=== PATIENT | female | born 1990 | race Caucasian/White ===

== ENCOUNTER 2020-10-19 11:17 | Emergency (ER) | payer OTHER, SELFPAY ==
--- NOTE | ~2020-10-19 | CT_ITS ---
EXAMINATION: CT SOFT TISSUE NECK WITH CONTRAST CLINICAL INFORMATION: Sore throat and displacing the uvula. Question left peritonsillar abscess. COMPARISON: None TECHNIQUE: Following the intravenous administration of 60 mL of Omnipaque 350 intravenous contrast, helical imaging was performed in the axial plane with generation of coronal and sagittal reformatted images. This CT examination was performed using dose optimization techniques as appropriate, variously including the following: *Automated exposure control *Adjustment of mA and/or kV according to patient size (this includes techniques or standardized protocols for targeted exams where dose is matched to indication/reason for exam; i.e. extremities or head) *Use of iterative reconstruction technique DLP: 592 mGy-cm FINDINGS: There is heterogeneous low-attenuation seen in the left side of the pharyngo mucosal space of the oropharynx suggestive of a peritonsillar abscess. This measures approximately 3 cm. The epiglottis is normal appearing. Prevertebral soft tissues are normal. There is diffuse cervical lymphadenopathy. Largest lymph nodes are bilateral 1.3 cm submandibular or anterior jugulodigastric level 2 lymph nodes. Visualized paranasal sinuses, mastoid air cells and middle ears are clear. There is poor dentition with multiple dental caries. The salivary glands and thyroid gland are normal. The superior mediastinum is normal. Visualized lung apices are clear. Visualized intracranial structures are normal. There is mild degenerative spondylosis at C5-C6 and C6-C7. CT/CT soft tissue neck w con IMPRESSION: Large left peritonsillar abscess measuring approximately 3 cm. Diffuse cervical lymphadenopathy. Poor dentition with multiple dental caries.
[2020-10-19 11:20] VITALS: BP 131/69; PULSE 93; RESP 16; TEMP 37.2; O2SAT 96; BMI 24.5
--- NOTE | 2020-10-19 11:43 | ED_ITS ---
HPI - URI/Sore Throat General Chief Complaint: General Medical Stated Complaint: sore throat Time Seen by Provider: 10/19/20 11:23 Source: patient Mode of arrival: ambulatory Limitations: no limitations History of Present Illness HPI Narrative: 30-year-old female with a past medical history of asthma, anxiety and depression presenting to the ED with complaints of sore throat for 10 days and within the past week the sore throat has now localized only to the left side and today is radiating to her left ear. Reports she is having trouble opening her mouth. Patient reports on September 23 she was seen by her dentist for dental infection and was placed on amoxicillin until October 08 she completed the entire course, she was scheduled to follow up tomorrow for actual dental extraction. Has not had any dental work done was only seen by the dentist and paste on antibiotics. MD elicited complaint: sore throat Onset (ago): day(s) (Ten days worse today) Consistency: constant Severity: severe Pain scale (0-10): 10 Description of mucous: clear, watery and yellow Able to tolerate fluids by mouth: Yes Exacerbating factors: swallowing and speaking Relieving factors: nothing Associated symptoms: rhinorrhea, nasal congestion and ear pain Treatments prior to arrival: other (Cepacol spray ) Related Data Home Medications Medication Instructions Recorded Confirmed methadone 40 mg soluble tablet 50 mg PO DAILY tab 07/09/20 Previous Rx's Medication Instructions Recorded albuterol sulfate 90 mcg/actuation 2 puff INHALATION Q6H PRN #6.7 g 07/09/20 aerosol inhaler acetaminophen [Tylenol Extra 1,000 mg PO QID PRN #14 tab 10/19/20 Strength] amoxicillin-pot clavulanate 1 tab PO BID 10 Days #20 tab 10/19/20 [Augmentin] ibuprofen 800 mg PO Q8H PRN #14 tab 10/19/20 oxycodone 5 mg PO BID PRN #10 tab 10/19/20 prednisone 40 mg PO DAILY 5 Days #10 tab 10/19/20 Allergies Allergy/AdvReac Type Severity Reaction Status Date / Time No Known Allergies Allergy Verified 07/08/20 07:07 Review of Systems Review of Systems: Constitutional : No Fever, No Chills, No changes in PO intake, No difficulty speaking, no recent dental procedure, no heat or cold intolerance while eating, no recent face trauma, ENT/Mouth : + swallowing difficulty, + change in voice, + jaw pain, + trismus, + Throat swelling, No facial swelling, no drooling, no bleeding, no lacerations, no tongue swelling, gum swelling, Eyes: No Eye Pain, No periorbital Swelling Cardiovascular : No Chest Pain, No SOB Respiratory : No Cough, No Sputum, No Wheezing, No Smoke Exposure, No Dyspnea Gastrointestinal : No Nausea, No Vomiting, No Diarrhea Genitourinary : No Dysuria Musculoskeletal : No Myalgias Skin : No rash, no facial swelling or redness, Neuro : No Weakness, No Numbness, No Headache Yes all other systems are reviewed and are negative [facility] Past Medical History Attestation statement: The following information was validated with the patient. Medical History Anxiety and depression Surgical History No pertinent past surgical history Family History Family History Father No problems noted. Mother Scoliosis Maternal Grandmother Breast cancer Social History Social History Advance Directives: No Advance Directives Information Provided: No Physical Exam Vital Signs: Vital Signs: Last Vital Signs Temp 99 F 10/19/20 11:20 Pulse 74 10/19/20 14:50 Resp 16 10/19/20 11:20 BP 139/85 10/19/20 14:50 Pulse Ox 96 10/19/20 11:20 Body Mass Index 24.5 vital signs have been reviewed as normal and appeared to be correct. Blood p ressure normal. Heart rate normal. Respiration rate normal. Temperature normal. Oxygen saturation normal. Appearance: Alert. Oriented X3. No acute distress. Head: Normal external exam. Normocephalic. Atraumatic. Eyes: PERRLA. EOMI. Conjunctiva and sclera normal. Eyelids normal. ENT: EAC normal. Fluid behind the b/l tympanic membranes otherwise no signs of infection. To left posterior pharynx at the soft palate patient has moderate soft tissue swelling and erythema to the uvula is displaced to the right questioning peritonsillar abscess. Patient's voice sounds muffled and she does have trismus. Moist mucous membranes. Patient able to swallow without any difficulty. Tolerating her secretions well. No drooling noted. Neck: Normal inspection. Neck supple. FROM. Thyroid Normal. Trachea midline. No meningeal signs. No neck mass noted. Patient with bilateral cervical lymphadenopathy noted. CVS: Normal heart rate and rhythm. Heart sound normal. No murmurs noted. Pulses normal throughout. Respiratory: No respiratory distress. Painless inspiration. Breath sounds normal. No wheezes/rales/rhonchi noted. Chest nontender. No accessory muscle usage noted or decreased air movement noted. Back: No CVA tenderness. Full range of motion noted. Skin: Skin warm and dry. Normal skin color. Normal skin turgor. No rashes/lesions/lacerations noted. Extremities: No lower extremity edema. Extremities exhibit normal range of motion. Extremities nontender. Neuro: Oriented X 3. No motor deficit. No sensory deficit. Reflexes normal. Course Course Course Narrative: 11:30am - 30-year-old female with a past medical history of asthma, anxiety and d epression presenting to the ED with complaints of sore throat for 10 days worse today localized to the left side with inability to fully open her mouth, change in her voice and radiating to her left ear. - On exam patient is alert and oriented x3. Not in any acute distress. Nontoxic appearing. Patient's oxygen saturation at 96% on room air all other vitals are within normal limits. Patient is noted to have trismus and muffled voice. Although patient is able to tolerate her secretions well. - Concern for peritonsillar abscess vs bacterial pharyngitis - Plan: Labs, blood cultures, lactic acid, rapid strep, SARs/RSV/flu swab. Provide a L of IV fluids, 10 mg of IV dexamethasone, 30 mg of IV Toradol and give the patient Zosyn IV along with a CT soft tissue neck with contrast to evaluate for possible peritonsillar abscess then re-evaluate. Reevaluation(s) Reevaluation #1: - [place] [id number]. All other labs are within normal limits. Serum quant negative. Rapid strep negative. COVID/RSV/flu negative. - soft tissue neck CT with IV contrast revealed large left peritonsillar abscess measuring approximately 3 cm with diffuse cervical lymphadenopathy along with poor dentition with multiple dental caries. - therefore at this time will give the patient 4 mg of IV morphine and 4 mg of Zofran IV and attempt to I&D the peritonsillar abscess and re-evaluate as patient is requesting to leave against medical advice if she is transferred to another hospital. Time: 15:30 Reevaluation #2: - patient now status post I and D of peritonsillar abscess. Patient tolerated procedure well. No complications. Will DC home with antibiotics and symptomatic treatment along with instructions return if any new or worsening symptoms to follow up with primary care provider. Patient understands agrees the plan. Time: 16:32 Procedures Abscess I/D Site: other (Left peritonsillar) Sedation/analgesia: other (4 mg of morphine) Local Anesthetic: other anesthetic (Lidocaine 4% spray with Magic) Amount of anesthesia used (mL): 5 Technique: needle aspiration Amount of fluid expressed (mL): 4 Sent for culture/gram staining?: No Irrigation: Yes Packing used?: none Complications: other (No complications) MDM - URI/Sore Throat Medical Records Attestation: I reviewed the patient's medical records. Lab Data Attestation: I reviewed the patient's lab results. Result diagrams: 10/19/20 13:41 10/19/20 13:41 Labs: Lab Results 10/19/20 10/19/20 10/19/20 Range/Units 12:22 13:41 13:41 WBC 16.6 H (4.8-10.8) X10*3/uL RBC 4.73 (4.20-5.50) X10*6/uL Hgb 15.5 (12.0-16.0) g/dl Hct 45.6 (37-47) % MCV 96.4 (80-98) fL MCH 32.8 (27.0-33.0) pg MCHC 34.0 (31.0-35.0) g/dl RDW 12.3 (11.0-16.0) % Plt Count 261 (160-400) X10*3/uL MPV 9.1 L (9.4-12.3) fL Immature Gran % (Auto) 0.5 H (0.0-0.4) % Neut % (Auto) 78.4 H (45-73) % Lymph % (Auto) 13.0 L (20-40) % [place] % (Auto) 6.4 (2-11) % Eos % (Auto) 1.3 (0-4) % Baso % (Auto) 0.4 (0-2) % Lymph # (Auto) 2.2 (1.2-4.9) X10*3/uL [place] # (Auto) 1.1 (0.1-1.2) X10*3/uL Eos # (Auto) 0.2 (0.0-0.4) X10*3/uL Baso # (Auto) 0.1 (0.0-0.2) X10*3/uL Abs Immat Gran (auto) 0.08 H (0.00-0.03) X10*3/uL Absolute Neuts (auto) 13.0 H (2.0-8.3) X10*3/uL Absolute Nucleated RBC 0.000 (0.0-0.012) X10*3/uL Nucleated RBC % (auto) 0.0 (0.0-0.2) /100WBC PT 12.2 (10.8-13.0) SEC INR 1.0 (0.9-1.1) Sodium (135-145) mmol/L Potassium (3.3-5.1) mmol/L Chloride (96-108) mmol/L Carbon Dioxide (22-29) mmol/L Anion Gap (12-20) BUN (9-16) mg/dL Creatinine (0.5-1.4) mg/dL Estim Creat Clear Calc Estimated GFR Random Glucose (60-115) mg/dL Lactic Acid (0.5-2.0) mmol/L Calcium (8.4-10.2) mg/dL Magnesium (1.6-2.6) mg/dL Beta HCG, Quant mIU/mL Coronavirus (PCR) NEGATIVE (Negative) Influenza Type A (PCR) NEGATIVE (Negative) Influenza Type B (PCR) NEGATIVE (Negative) RSV RNA Qual (PCR) NEGATIVE (Negative) 10/19/20 10/19/20 10/19/20 Range/Units 13:41 13:41 13:42 WBC (4.8-10.8) X10*3/uL RBC (4.20-5.50) X10*6/uL Hgb (12.0-16.0) g/dl Hct (37-47) % MCV (80-98) fL MCH (27.0-33.0) pg MCHC (31.0-35.0) g/dl RDW (11.0-16.0) % Plt Count (160-400) X10*3/uL MPV (9.4-12.3) fL Immature Gran % (Auto) (0.0-0.4) % Neut % (Auto) (45-73) % Lymph % (Auto) (20-40) % Trim[place] % (Auto) (2-11) % Eos % (Auto) (0-4) % Baso % (Auto) (0-2) % Lymph # (Auto) (1.2-4.9) X10*3/uL Trimble # (Auto) (0.1-1.2) X10*3/uL Eos # (Auto) (0.0-0.4) X10*3/uL Baso # (Auto) (0.0-0.2) X10*3/uL Abs Immat Gran (auto) (0.00-0.03) X10*3/uL Absolute Neuts (auto) (2.0-8.3) X10*3/uL Absolute Nucleated RBC (0.0-0.012) X10*3/uL Nucleated RBC % (auto) (0.0-0.2) /100WBC PT (10.8-13.0) SEC INR (0.9-1.1) Sodium 135 (135-145) mmol/L Potassium 4.6 (3.3-5.1) mmol/L Chloride 97 (96-108) mmol/L Carbon Dioxide 29 (22-29) mmol/L Anion Gap 14 (12-20) BUN 9 (9-16) mg/dL Creatinine 0.72 (0.5-1.4) mg/dL Estim Creat Clear Calc 95.1 Estimated GFR > 60 Random Glucose 80 (60-115) mg/dL Lactic Acid 0.6 (0.5-2.0) mmol/L Calcium 9.3 (8.4-10.2) mg/dL Magnesium 2.4 (1.6-2.6) mg/dL Beta HCG, Quant < 2 mIU/mL Coronavirus (PCR) (Negative) Influenza Type A (PCR) (Negative) Influenza Type B (PCR) (Negative) RSV RNA Qual (PCR) (Negative) Imaging Data Soft tissue neck CT with IV contrast: Attestation: I personally reviewed and interpreted this imaging study as follows: Radiologist's impression: FINDINGS: There is heterogeneous low-attenuation seen in the left side of the pharyngo mucosal space of the oropharynx suggestive of a peritonsillar abscess. This measures approximately 3 cm. The epiglottis is normal appearing. Prevertebral soft tissues are normal. There is diffuse cervical lymphadenopathy. Largest lymph nodes are bilateral 1.3 cm submandibular or anterior jugulodigastric level 2 lymph nodes. Visualized paranasal sinuses, mastoid air cells and middle ears are clear. There is poor dentition with multiple dental caries. The salivary glands and thyroid gland are normal. The superior mediastinum is normal. Visualized lung apices are clear. Visualized intracranial structures are normal. There is mild degenerative spondylosis at C5-C6 and C6-C7. CT/CT soft tissue neck w con IMPRESSION: Large left peritonsillar abscess measuring approximately 3 cm. Diffuse cervical lymphadenopathy. Poor dentition with multiple dental caries. Critical Care Time Critical Care Time Critical Care Time: Yes Total Critical Care Time: 60 Attestation: I personally attest to this time spent taking care of the patient Discharge Plan Discharge Clinical Impression: Abscess, peritonsillar Patient Disposition: Home, Self-Care Instructions: Peritonsillar Abscess (ED) Additional Instructions: You are given morphine while you were in the emergency department for pain due to a severe peritonsillar abscess/pain/swelling. I am giving you a prescription for oxycodone as well for symptomatic treatment. Return if any new or worsening symptoms. Prescriptions: New amoxicillin-pot clavulanate [Augmentin] 875-125 mg tablet 1 tab PO BID 10 Days Qty: 20 RF: 0 ibuprofen 800 mg tablet 800 mg PO Q8H PRN (Reason: pain) Qty: 14 RF: 0 acetaminophen [Tylenol Extra Strength] 500 mg tablet 1,000 mg PO QID PRN (Reason: fever or pain) Qty: 14 RF: 0 prednisone 20 mg tablet 40 mg PO DAILY 5 Days Qty: 10 RF: 0 oxycodone 5 mg tablet 5 mg PO BID PRN (Reason: pain) Qty: 10 RF: 0 No Action methadone 40 mg tablet,soluble 50 mg PO DAILY RF: 0 albuterol sulfate [ProAir HFA] 90 mcg/actuation HFA aerosol inhaler 2 puff inhalation Q6H PRN (Reason: shortness of breath or wheezing) Qty: 6.7 RF: 0 Referrals: Aminah Ham NP [Primary Care Provider] - 2 days
[2020-10-19 13:09] LABS: Influenza A PCR NEGATIVE (Negative); Influenza B PCR NEGATIVE (Negative); Resp Syncy Virus RNA Qual PCR NEGATIVE (Negative); SARS COV2 PCR INHOUSE NEGATIVE (Negative)
[2020-10-19 13:50] LABS: MANUAL DIFF FLAG NO
[2020-10-19 13:54] LABS: Basophils Absolute Auto 0.1 X10*3/uL (0.0-0.2); Basophils Percent Auto 0.4 % (0-2); Eosinophils Absolute Auto 0.2 X10*3/uL (0.0-0.4); Eosinophils Percent Auto 1.3 % (0-4); Hematocrit 45.6 % (37-47); Hemoglobin 15.5 g/dl (12.0-16.0); Imm Gran Abs Auto 0.08 X10*3/uL (0.00-0.03); Imm Gran Pct Auto 0.5 % (0.0-0.4); Lymphocytes Absolute Auto 2.2 X10*3/uL (1.2-4.9); Mean Corpuscular Hemoglobin 32.8 pg (27.0-33.0); Mean Corpuscular Volume 96.4 fL (80-98); Mean Platelet Volume 9.1 fL (9.4-12.3); Monocytes Absolute Auto 1.1 X10*3/uL (0.1-1.2); Monocytes Percent Auto 6.4 % (2-11); Neutrophils Percent Auto 78.4 % (45-73); Platelet Count 261 X10*3/uL (160-400); Red Blood Count 4.73 X10*6/uL (4.20-5.50); Red Cell Distribution Width 12.3 % (11.0-16.0); White Blood Count 16.6 X10*3/uL (4.8-10.8)
[2020-10-19] MEDS: Piperacillin Sodium/Tazobactam 2.25 GM in 0.9 % Sodium Chloride 50 ML IV (13:57)
[2020-10-19] MEDS: Ketorolac Tromethamine 15 MG/ML VIAL 30 MG IV (13:59)
[2020-10-19] MEDS: 0.9 % Sodium Chloride 1,000 ML 999 ML IVCONT (14:01)
[2020-10-19 14:04] LABS: Prothrombin Time 12.2 SEC (10.8-13.0)
[2020-10-19 14:07] LABS: Lactic Acid 0.6 mmol/L (0.5-2.0)
[2020-10-19 14:13] LABS: Anion Gap 14 (12-20); Blood Urea Nitrogen 9 mg/dL (9-16); Calcium 9.3 mg/dL (8.4-10.2); Carbon Dioxide 29 mmol/L (22-29); Chloride 97 mmol/L (96-108); Creatinine Clr Calc Pharmacy 95.1; Estimated Glomerular Filt Rate > 60; Glucose Random 80 mg/dL (60-115); Magnesium 2.4 mg/dL (1.6-2.6); Potassium 4.6 mmol/L (3.3-5.1); Sodium 135 mmol/L (135-145)
[2020-10-19 14:20] LABS: HCG Quantitative < 2 mIU/mL
[2020-10-19] MEDS: iohexoL 350 MG/ML 100 ML INFUS..BTL IV (14:38)
[2020-10-19 14:50] VITALS: BP 139/85; PULSE 74
[2020-10-19] MEDS: ondansetron HCL 4 MG/2 ML VIAL IVPUSH (15:43)
[2020-10-19] MEDS: Morphine Sulfate 4 MG/ML CARTRIDGE IVPUSH (15:43)
[2020-10-19] MEDS: Lidocaine HCl 4 % MPF w/MADgic 5 ML AMPUL 1 APPL TOPICAL (16:32)
== END 2020-10-19 16:49 | disposition home or self-care (01) ==
PROVIDERS: Physician Assistant Medical; Emergency Provider Emergency Medicine; PCP Nurse Practitioner Family
DX: J36 Peritonsillar abscess (principal); R59.1 Generalized enlarged lymph nodes; Z20.822 Contact with and (suspected) exposure to COVID-19; K02.9 Dental caries, unspecified
CPT/HCPCS: 0241U; 36415; 42700; 70491; 80048; 83605; 83735; 84702; 85025; 85610; 87040; 87071; 87147; 87880; 96361; 96365; 96375; 99283; 99291; J1100; J1885; J2270; J2405; J2543; Q9967

== ENCOUNTER 2020-11-17 11:00 | Outpatient (REF) | payer OTHER, SELFPAY ==
[2020-11-17 16:40] LABS: CT PCR NOT DETECTED (Not Detect.); NG PCR NOT DETECTED (Not Detect.)
[2020-11-18 09:05] LABS: BV Int Neg Control Negative (Negative); BV Int Pos Control Positive (Positive)
== END 2020-11-17 11:01 | disposition home or self-care (01) ==
LOC: HO.LAB 11:00
PROVIDERS: Visit Provider Advanced Practice Midwife
DX: Z01.419 Encounter for gynecological examination (general) (routine) without abnormal findings (principal); Z20.2 Contact with and (suspected) exposure to infections with a predominantly sexual mode of transmission
CPT/HCPCS: 81025; 87480; 87491; 87510; 87591; 87660; 88142

== ENCOUNTER 2020-12-25 09:34 | Outpatient (REF) | payer OTHER, SELFPAY ==
[2020-12-25 11:41] LABS: MANUAL DIFF FLAG NO
[2020-12-25 11:51] LABS: Basophils Percent Auto 0.5 % (0-2); Eosinophils Absolute Auto 0.1 X10*3/uL (0.0-0.4); Eosinophils Percent Auto 0.9 % (0-4); Hematocrit 39.8 % (37-47); Hemoglobin 13.8 g/dl (12.0-16.0); Imm Gran Abs Auto 0.03 X10*3/uL (0.00-0.03); Imm Gran Pct Auto 0.5 % (0.0-0.4); Lymphocytes Absolute Auto 1.8 X10*3/uL (1.2-4.9); Lymphocytes Percent Auto 28.5 % (20-40); Mean Corpuscular HGB Conc 34.7 g/dl (31.0-35.0); Mean Corpuscular Hemoglobin 32.3 pg (27.0-33.0); Mean Corpuscular Volume 93.2 fL (80-98); Mean Platelet Volume 9.7 fL (9.4-12.3); Monocytes Absolute Auto 0.5 X10*3/uL (0.1-1.2); Monocytes Percent Auto 7.9 % (2-11); Neutrophils Absolute Auto 3.9 X10*3/uL (2.0-8.3); Neutrophils Percent Auto 61.7 % (45-73); Platelet Count 276 X10*3/uL (160-400); Red Blood Count 4.27 X10*6/uL (4.20-5.50); Red Cell Distribution Width 11.8 % (11.0-16.0); White Blood Count 6.4 X10*3/uL (4.8-10.8)
[2020-12-25 12:30] LABS: Anion Gap 12 (12-20); Blood Urea Nitrogen 8 mg/dL (9-16); Calcium 8.7 mg/dL (8.4-10.2); Carbon Dioxide 25 mmol/L (22-29); Chloride 102 mmol/L (96-108); Estimated Glomerular Filt Rate > 60; Glucose Fasting 89 mg/dL (60-99); Potassium 4.2 mmol/L (3.3-5.1); Sodium 135 mmol/L (135-145)
[2020-12-25 12:50] LABS: Syphilis Screen Nonreactive (Nonreactive)
[2020-12-27 00:44] LABS: HIV AB/AG Nonreactive (Nonreactive)
[2020-12-28 08:13] LABS: HBsAGNum1 0.23 S/CO (0.00-0.99); Hepatitis B Surface Antigen Negative (Negative); ~HepC Num1 0.09 S/CO (0.00-0.79); ~Hepatitis C Antibody Nonreactive (Nonreactive)
[2020-12-28 08:46] LABS: HIV Num 1 0.13 S/CO (0.00-0.99)
== END 2020-12-25 09:35 | disposition home or self-care (01) ==
LOC: HO.LAB 09:34
PROVIDERS: Nurse Practitioner Family; Visit Provider Advanced Practice Midwife
DX: Z32.01 Encounter for pregnancy test, result positive (principal); Z20.2 Contact with and (suspected) exposure to infections with a predominantly sexual mode of transmission
CPT/HCPCS: 36415; 80048; 81025; 84702; 85025; 86780; 86803; 87340; 87389; 99212

== ENCOUNTER 2021-01-01 10:53 | Outpatient (REF) | payer OTHER, SELFPAY ==
--- NOTE | ~2021-01-01 | US_ITS ---
EXAMINATION: OBSTETRICAL ULTRASOUND, FIRST TRIMESTER HISTORY: 30-year-old at 19.3 weeks of gestation uncertain dates. LMP: 10/27/2020 COMPARISON: None in this TECHNIQUE: Real time transabdominal imaging with color and M-mode Doppler. FINDINGS: A single, live IUP CRL of 27 mm c/w 9.4wks is noted. Heart Rate: 165 beats per minute. The right ovaries within normal limits. Left ovary was not visible. No free fluid in the posterior cul-de-sac. GESTATIONAL AGE: 1. GA from LMP: 9.3 wks 2. GA from AUA: 9.4 wks ESTIMATED DATE OF DELIVERY: 1. LIS from LMP: 08/03/2021 2. LIS from AUA: 08/02/2021 US/US OB <= 14 weeks fetus IMPRESSION: A single live IUP Size equals dates, CRL is consistent with 9.4 weeks of gestation. Her best LIS is 08/03/2021 based on her LMP. Thank you very much for this referral. This note was generated with a voice recognition program. Please excuse any errors which may have been overlooked during my review of this note. Sometimes these errors may affect the content or meaning of a given sentence.
== END 2021-01-01 10:54 | disposition home or self-care (01) ==
LOC: HO.US 10:53
PROVIDERS: Visit Provider Advanced Practice Midwife
DX: O20.0 Threatened abortion (principal)
CPT/HCPCS: 76801

== ENCOUNTER → 2021-01-06 09:37 | Outpatient (BNVA) | payer OTHER, SELFPAY | PROVIDERS: Visit Provider Advanced Practice Midwife ==

== ENCOUNTER → 2021-01-07 16:21 | Outpatient (BNVA) | payer OTHER, SELFPAY | PROVIDERS: Visit Provider Advanced Practice Midwife ==

== ENCOUNTER 2021-01-13 16:15 | Outpatient (REF) | payer OTHER, SELFPAY | END 2021-01-13 16:16 | disposition home or self-care (01) | LOC: HO.LAB 16:15 | PROVIDERS: PCP Internal Medicine; Visit Provider Advanced Practice Midwife | DX: Z34.90 Encounter for supervision of normal pregnancy, unspecified, unspecified trimester (principal) | CPT/HCPCS: 36415; 84702; 86850; 86900; 86901 ==

== ENCOUNTER 2021-01-15 11:34 | Outpatient (REF) | payer OTHER, SELFPAY ==
--- NOTE | ~2021-01-15 | US_ITS ---
EXAMINATION: US OBSTETRICAL ULTRASOUND CLINICAL INFORMATION: Hemorrhage and early COMPARISON: Previous exam 01/01/2021. LMP: 10/27/2020. Gestational age by maternal dates is 11 weeks 3 days. Estimated date of delivery by maternal dates is 08/03/2021. TECHNIQUE: Transabdominal first trimester OB ultrasound FINDINGS: There is a single intrauterine gestational sac with visible yolk sac, embryo/fetus, and cardiac activity. There is no significant subchorionic hemorrhage or hematoma. HR: 165 beats per minute. CRL (crown rump length): 4.7 cm (11 weeks 4 days +/- 4 days). LIS (estimated date of delivery): 08/02/2021 +/- 4 days. MATERNAL ADNEXA: The right maternal ovary measures 2.7 x 1.5 x 2.1 cm. normal. The left maternal ovary is not seen. There is no significant maternal adnexal mass. No maternal pelvic ascites. US/US OB <= 14 weeks fetus IMPRESSION: 1. Single intrauterine gestation with ultrasound gestational age of 11 weeks 4 days +/- 4 days. 2. Estimated date of delivery is 08/02/2021 +/- 4 days. 3. No maternal adnexal mass or pelvic ascites.
== END 2021-01-15 11:35 | disposition home or self-care (01) ==
LOC: HO.US 11:34
PROVIDERS: Visit Provider Obstetrics & Gynecology
DX: O20.9 Hemorrhage in early pregnancy, unspecified (principal)
CPT/HCPCS: 76801; 81003; 99212

== ENCOUNTER 2021-01-15 13:16 | Outpatient (REF) | payer OTHER, SELFPAY ==
[2021-01-16 01:03] LABS: CT PCR NOT DETECTED (Not Detect.); NG PCR NOT DETECTED (Not Detect.)
== END 2021-01-15 13:17 | disposition home or self-care (01) ==
LOC: HO.LAB 13:16
PROVIDERS: Visit Provider Obstetrics & Gynecology
DX: O20.9 Hemorrhage in early pregnancy, unspecified (principal)
CPT/HCPCS: 87491; 87591

== ENCOUNTER → 2021-01-19 10:04 | Outpatient (BNVA) | payer OTHER, SELFPAY | PROVIDERS: Visit Provider Obstetrics & Gynecology ==

== ENCOUNTER 2021-01-27 10:05 | Outpatient (REF) | payer OTHER, SELFPAY ==
[2021-01-27 11:47] LABS: Hematocrit 37.6 % (37-47); Hemoglobin 13.2 g/dl (12.0-16.0); Mean Corpuscular HGB Conc 35.1 g/dl (31.0-35.0); Mean Corpuscular Hemoglobin 32.9 pg (27.0-33.0); Mean Corpuscular Volume 93.8 fL (80-98); Mean Platelet Volume 9.4 fL (9.4-12.3); Platelet Count 215 X10*3/uL (160-400); Red Blood Count 4.01 X10*6/uL (4.20-5.50); Red Cell Distribution Width 11.7 % (11.0-16.0); White Blood Count 7.3 X10*3/uL (4.8-10.8)
[2021-01-27 12:14] LABS: Amphetamine Screen Urine Not Detected (Not Detect); Barbiturates, Urine Not Detected (Not Detect); Benzodiazepines Screen Urine Not Detected (Not Detect); Cannabinoid Screen Urine POSITIVE (Not Detect); Cocaine Screen Urine Not Detected (Not Detect); Opiate Screen Urine Not Detected (Not Detect); Phencyclidine Screen Urine Not Detected (Not Detect)
[2021-01-27 12:34] LABS: ~HepC Num1 0.08 S/CO (0.00-0.79); ~Hepatitis C Antibody Nonreactive (Nonreactive)
[2021-01-27 12:50] LABS: Syphilis Screen Nonreactive (Nonreactive)
[2021-01-27 13:08] LABS: HBsAGNum1 0.22 S/CO (0.00-0.99); HIV AB/AG Nonreactive (Nonreactive); HIV Num 1 0.05 S/CO (0.00-0.99); Hepatitis B Surface Antigen Negative (Negative)
[2021-01-28 05:42] LABS: Rubella IgG Antibody 1.64 Index
== END 2021-01-27 10:06 | disposition home or self-care (01) ==
LOC: HO.LAB 10:05
PROVIDERS: PCP Nurse Practitioner Family; Visit Provider Obstetrics & Gynecology
DX: O99.321 Drug use complicating pregnancy, first trimester (principal); F11.20 Opioid dependence, uncomplicated; O99.331 Smoking (tobacco) complicating pregnancy, first trimester; F17.210 Nicotine dependence, cigarettes, uncomplicated; O99.341 Other mental disorders complicating pregnancy, first trimester; F41.9 Anxiety disorder, unspecified; F32.9 Major depressive disorder, single episode, unspecified; O99.511 Diseases of the respiratory system complicating pregnancy, first trimester; J45.909 Unspecified asthma, uncomplicated; Z3A.13 13 weeks gestation of pregnancy
CPT/HCPCS: 80307; 85027; 86762; 86780; 86787; 86803; 86850; 86900; 86901; 87086; 87340; 87389; 99212

== ENCOUNTER 2021-01-29 14:36 | Outpatient (REF) | payer OTHER, SELFPAY ==
--- NOTE | ~2021-01-29 | US_ITS ---
EXAMINATION: OBSTETRICAL ULTRASOUND, FIRST TRIMESTER HISTORY: 30-year-old at 13.3 weeks of gestation NT screening COMPARISON: 01/15/2021 TECHNIQUE: Real time transabdominal imaging with color and M-mode Doppler. FINDINGS: A single, live IUP CRL of 73.1 mm c/w wks is noted. Heart Rate: 152 beats per minute. Normal yolk sac seen. NT was 1.5.mm. NB Present The embryo appears sonographically wnl for this GA. Right ovary is within normal limits. Left was not visible. GESTATIONAL AGE: 1. Established GA: 13.3 wks 2. GA from AUA: 13.4 wks ESTIMATED DATE OF DELIVERY: 1. Established LIS: 08/03/2021 2. LIS from AUA: 08/02/2021 US/US OB 1T nuc measure IMPRESSION: 1. Single live IUP 2. Size equals dates 3. NT of 1.5 mm MFM Consultation: I reviewed the ultrasound findings along with significance of NT measurement. The NT of less than 3mm is generally reassuring. However, the sensitivity for T21 detection is only 60%. I reviewed the availability of serum aneuploidy screening which includes cell-free DNA and placental protein based tests. I discussed the sensitivity, false-positive rate, and other limitations associated with each test. I also reviewed the availability of invasive diagnostic tests that are associated small but definite risk of miscarriage. We also reviewed the differences between screening tests and diagnostic tests. After our discussion, she opted for the First trimester screening that is based on cell-free DNA or non-invasive testing (NIPT). The result will be faxed to your office in approximately 7 days. A follow up at 18 weeks for survey has been scheduled. Thank you very much for this referral. Total time 30 minutes. The time spent was devoted to counseling the patient about the disease and diagnosis, coordinating care including reviewing her records, pertinent lab data and studies, as well as discussing diagnostic evaluation and workup, plan therapeutic interventions and future disposition of care. This includes any additional research needed to obtain further information in formulating the plan of care of this patient. This note was generated with a voice recognition program. Please excuse any errors which may have been overlooked during my review of this note. Sometimes these errors may affect the content or meaning of a given sentence.
== END 2021-01-29 14:37 | disposition home or self-care (01) ==
LOC: HO.US 14:36
PROVIDERS: Visit Provider Obstetrics & Gynecology
DX: Z36.82 Encounter for antenatal screening for nuchal translucency (principal)
CPT/HCPCS: 76813

== ENCOUNTER 2021-02-12 08:33 | Outpatient (REF) | payer OTHER, SELFPAY ==
[2021-02-12 14:24] LABS: CT PCR NOT DETECTED (Not Detect.); NG PCR NOT DETECTED (Not Detect.)
== END 2021-02-12 08:34 | disposition home or self-care (01) ==
LOC: HO.LAB 08:33
PROVIDERS: PCP Nurse Practitioner Family; Visit Provider Advanced Practice Midwife
DX: Z34.92 Encounter for supervision of normal pregnancy, unspecified, second trimester (principal)
CPT/HCPCS: 81003; 87491; 87591; 99212

== ENCOUNTER 2021-03-05 14:36 | Outpatient (REF) | payer OTHER, SELFPAY ==
--- NOTE | ~2021-03-05 | US_ITS ---
EXAMINATION: US OBSTETRICAL CLINICAL INFORMATION: 30-year-old at 18.3 weeks of gestation Screening for anomaly COMPARISON: 01/29/2021 TECHNIQUE: Real-time transabdominal ultrasound was performed using C1-5 megahertz transducer. FINDINGS: A single, active, fetus is seen in transverse presentation. The placenta is posterior without previa, and the amniotic fluid volume is wnl. MEASUREMENTS: 1. Biparietal Diameter: 4.2 cm; 18.5 wks 2. Occipital Frontal Diameter: 5.4 cm 3. Head Circumference: 15.5 cm; 18.4 wks 4. Abdominal Circumference: 14.2 cm; 19.4 wks 5. Femur Length: 2.7 cm; 18.2 wks 6. Humerus Length: 2.7 cm; 18.5 wks 7. Tibia Length: 2.4 cm; 18.4 wks 8. Ulna Length: 2.3 cm; 18.3 wks 9. Lateral ventricle: 0.7 cm 10. Cerebellum: 1.8 cm; 19.0 wks 11. Cisterna Magna: 0.4 cm 12. Nuchal Fold: 2.5 mm 13. Heart Rate: 140 beats per minute Rt ovary: normal Lt ovary: normal Cervical length 3.1 cm on T/A. GESTATIONAL AGE: 1. Established GA: 18.3 wks 2. GA from [facility]: 18.6 wks ESTIMATED DATE OF DELIVERY: 1. Established LIS: 08/03/2021 2. LIS from [facility]: 07/31/2021 ANATOMY: The visualized anatomy includes but not limited to: 1. Cranium: Normal 2. Intracranial anatomy: cavum septum pellucidi, lateral ventricles, choroid plexus, cerebellum, posterior fossa, third and fourth ventricles. 3. face: orbits, lip/palate, profile, nasal bone 4. Heart: four-chamber view of the heart, ventricular septum, foramen ovale, pulmonary vein, left and right outflow tracts, three-vessel view, 3 vessel trachea view, aortic and ductal arches, situs.. 5. Diaphragm: Normal 6. Abdominal wall: Normal 7. Cord Insertion: Normal 8. Spine: Cervical, thoracic, lumbar, sacral. 9. Stomach: Normal size and shape 10. Right Kidney: Normal 11. Left Kidney: Normal 12. 3 vessel cord: Normal 13. Upper extremity: Open hands, fifth digit. 14. Lower extremity: Tibia, fibula, bilateral feet. 15. Bladder: Normal 16. Genitalia: Female, patient aware US/US OB /maternal detail IMPRESSION: 1. Single, living, intrauterine with appropriate biometry. 2. Normal survey DISCUSSION: I reviewed today's ultrasound findings. We discussed the limitations of ultrasound in diagnosing aneuploidy and other congenital abnormalities. I reviewed the differences between screening test and diagnostic test. Amniocentesis was discussed and declined. She was informed that the baseline incidence of congenital abnormalities is approximately 3-5%. Not all these conditions are diagnosable in utero. RECOMMENDATIONS: Follow-up when necessary. Thank you for allowing me to participate in her care. Total time 20 minutes. The time spent was devoted to counseling the patient about the disease and diagnosis, coordinating care including reviewing her records, pertinent lab data and studies, as well as discussing diagnostic evaluation and workup, plan therapeutic interventions and future disposition of care. This includes any additional research needed to obtain further information in formulating the plan of care of this patient. This note was generated with a voice recognition program. Please excuse any errors which may have been overlooked during my review of this note. Sometimes these errors may affect the content or meaning of a given sentence.
== END 2021-03-05 14:37 | disposition home or self-care (01) ==
LOC: HO.US 14:36
PROVIDERS: Visit Provider Advanced Practice Midwife
DX: Z34.92 Encounter for supervision of normal pregnancy, unspecified, second trimester (principal); Z36.3 Encounter for antenatal screening for malformations
CPT/HCPCS: 76811

== ENCOUNTER → 2021-03-12 10:40 | Outpatient (BNVA) | payer OTHER, SELFPAY | PROVIDERS: PCP Nurse Practitioner Family; Visit Provider Advanced Practice Midwife | DX: O99.322 Drug use complicating pregnancy, second trimester (principal); F11.20 Opioid dependence, uncomplicated; Z3A.19 19 weeks gestation of pregnancy | CPT/HCPCS: 81003; 99212 ==

== ENCOUNTER → 2021-04-09 11:06 | Outpatient (BNVA) | payer OTHER, SELFPAY | PROVIDERS: PCP Nurse Practitioner Family; Visit Provider Advanced Practice Midwife | DX: O99.322 Drug use complicating pregnancy, second trimester (principal); F12.90 Cannabis use, unspecified, uncomplicated; F11.20 Opioid dependence, uncomplicated; Z3A.23 23 weeks gestation of pregnancy | CPT/HCPCS: 81003; 99212 ==

== ENCOUNTER → 2021-05-07 13:51 | Outpatient (BNVA) | payer OTHER, SELFPAY | PROVIDERS: PCP Nurse Practitioner Family; Visit Provider Advanced Practice Midwife | DX: O36.8130 Decreased fetal movements, third trimester, not applicable or unspecified (principal); O99.322 Drug use complicating pregnancy, second trimester; F19.10 Other psychoactive substance abuse, uncomplicated; F12.10 Cannabis abuse, uncomplicated; O98.812 Other maternal infectious and parasitic diseases complicating pregnancy, second trimester; B19.10 Unspecified viral hepatitis B without hepatic coma; O99.512 Diseases of the respiratory system complicating pregnancy, second trimester; J45.909 Unspecified asthma, uncomplicated; Z3A.27 27 weeks gestation of pregnancy | CPT/HCPCS: 81003; 99212 ==

== ENCOUNTER 2021-05-19 14:34 | Outpatient (REF) | payer OTHER, SELFPAY ==
[2021-05-19 17:19] LABS: Hematocrit 35.6 % (37-47); Hemoglobin 12.4 g/dl (12.0-16.0); Mean Corpuscular HGB Conc 34.8 g/dl (31.0-35.0); Mean Corpuscular Hemoglobin 32.6 pg (27.0-33.0); Mean Corpuscular Volume 93.7 fL (80-98); Mean Platelet Volume 10.1 fL (9.4-12.3); Platelet Count 222 X10*3/uL (160-400); Red Cell Distribution Width 12.5 % (11.0-16.0); White Blood Count 12.3 X10*3/uL (4.8-10.8)
[2021-05-19 17:35] LABS: Glucose 1 Hour PP 50gm Dose 69 mg/dL (60-140)
[2021-05-19 18:01] LABS: Syphilis Screen Nonreactive (Nonreactive)
== END 2021-05-19 14:35 | disposition home or self-care (01) ==
LOC: HO.LAB 14:34
PROVIDERS: PCP Nurse Practitioner Family; Visit Provider Advanced Practice Midwife
DX: O99.320 Drug use complicating pregnancy, unspecified trimester (principal); O99.333 Smoking (tobacco) complicating pregnancy, third trimester; F11.20 Opioid dependence, uncomplicated; Z3A.29 29 weeks gestation of pregnancy; Z79.899 Other long term (current) drug therapy; Z20.2 Contact with and (suspected) exposure to infections with a predominantly sexual mode of transmission
CPT/HCPCS: 36415; 81003; 85027; 86780; 99212

== ENCOUNTER 2021-05-21 13:02 | Outpatient (REF) | payer OTHER, SELFPAY ==
--- NOTE | ~2021-05-21 | US_ITS ---
EXAMINATION: OBSTETRICAL ULTRASOUND, Follow up HISTORY: 30-year-old at the 29.3 weeks of gestation Size date discrepancy Substance use COMPARISON: 03/05/2021 TECHNIQUE: Real time transabdominal imaging with color and M-mode Doppler. 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 Biparietal Diameter: 7.4 cm; 29.4 wks 2. Head Circumference: 27.5 cm; 30.1 wks 3. Abdominal Circumference: 26.3 cm; 30.4 wks 4. Femur Length: 5.4 cm; 28.4 wks 5. Heart Rate: 136 beats per minute WEIGHT: EFW: 1446 grams (3 lbs 3 oz) -- 48 %. BIOPHYSICAL PROFILE: Motion: 2 Tone: 2 Breathin Amniotic Fluid: 2 Total score: 8/8 GESTATIONAL AGE: 1. Established GA: 29.3 wks 2. GA from AUA: 29.5 wks ESTIMATED DATE OF DELIVERY: 1. Established LIS: 08/03/2021 2. LIS from AUA: 08/01/2021 US/US OB follow up IMPRESSION: 1. A single active fetus is in vertex presentation 2. Size equals dates 3. Reassuring biophysical profile with normal amniotic fluid volume I reviewed today's ultrasound findings and gave her reassurance. Currently she is doing well on methadone 32 mg q.d. maintenance. She is aware of the possible withdrawal from methadone. She is also aware that the recommendation is to continue methadone maintenance program until after delivery. A follow-up in approximately 4 weeks is suggested (not scheduled). Thank you very much for this referral. Total time 30 minutes. The time spent was devoted to counseling the patient about the disease and diagnosis, coordinating care including reviewing her records, pertinent lab data and studies, as well as discussing diagnostic evaluation and workup, plan therapeutic interventions and future disposition of care. This includes any additional research needed to obtain further information in formulating the plan of care of this patient. This note was generated with a voice recognition program. Please excuse any errors which may have been overlooked during my review of this note. Sometimes these errors may affect the content or meaning of a given sentence.
== END 2021-05-21 13:03 | disposition home or self-care (01) ==
LOC: HO.US 13:02
PROVIDERS: PCP Nurse Practitioner Family; Visit Provider Advanced Practice Midwife
DX: O99.320 Drug use complicating pregnancy, unspecified trimester (principal); F11.20 Opioid dependence, uncomplicated
CPT/HCPCS: 76816

== ENCOUNTER → 2021-06-01 12:47 | Outpatient (BNVA) | payer OTHER, SELFPAY | PROVIDERS: PCP Nurse Practitioner Family; Visit Provider Obstetrics & Gynecology | DX: O99.323 Drug use complicating pregnancy, third trimester (principal); F11.20 Opioid dependence, uncomplicated; O99.513 Diseases of the respiratory system complicating pregnancy, third trimester; J45.909 Unspecified asthma, uncomplicated; Z3A.31 31 weeks gestation of pregnancy | CPT/HCPCS: 99212 ==

== ENCOUNTER → 2021-06-16 12:33 | Outpatient (BNVA) | payer OTHER, SELFPAY | PROVIDERS: PCP Nurse Practitioner Family; Visit Provider Obstetrics & Gynecology | DX: Z34.83 Encounter for supervision of other normal pregnancy, third trimester (principal); Z3A.33 33 weeks gestation of pregnancy | CPT/HCPCS: 99212 ==

== ENCOUNTER 2021-06-18 14:25 | Outpatient (REF) | payer OTHER, SELFPAY ==
--- NOTE | ~2021-06-18 | US_ITS ---
EXAMINATION: OBSTETRICAL ULTRASOUND, Follow up HISTORY: A 30-year-old at the 33.3 weeks of gestation Size date discrepancy Drug use in COMPARISON: 05/21/2021 TECHNIQUE: Real time transabdominal imaging with color and M-mode Doppler. PRESENTATION: Vertex PLACENTA LOCATION: Posterior without previa AMNIOTIC FLUID: DAQUAN 14.8 cm MEASUREMENTS: 1. Biparietal Diameter: 8.4 cm; 33.5 wks 2. Head Circumference: 31.9 cm; 35.6 wks 3. Abdominal Circumference: 30.6 cm; 34.4 wks 4. Femur Length: 6.7 cm; 34.3 wks 5. Heart Rate: 136 beats per minute WEIGHT: EFW: 2447 grams (5 lbs 6 oz) -- 75 %. BIOPHYSICAL PROFILE: Motion: 2 Tone: 2 Breathin Amniotic Fluid: 2 Total score: 8/8 GESTATIONAL AGE: 1. Established GA: 33.3 wks 2. GA from AUA: 34.5 wks ESTIMATED DATE OF DELIVERY: 1. Established LIS: 08/03/2021 2. LIS from AUA: 07/24/2021 US/ OB follow up IMPRESSION: 1. A single active fetus is in vertex presentation 2. Size equals dates 3. Reassuring biophysical profile She is doing well on methadone maintenance program. We discussed the possibility of withdrawal. I informed her that the neonatologists will manage the baby immediately after the delivery before discharge. On occasion, withdrawal may take a few days to complete. She should begin interviewing pediatricians for the regular care once the baby is discharged from the hospital. She is planning to deliver at [facility]. I advised her to enquire about management of withdrawal at [facility]. Thank you very much for this referral. Total time 30 minutes. The time spent was devoted to counseling the patient about the disease and diagnosis, coordinating care including reviewing her records, pertinent lab data and studies, as well as discussing diagnostic evaluation and workup, plan therapeutic interventions and future disposition of care. This includes any additional research needed to obtain further information in formulating the plan of care of this patient. This note was generated with a voice recognition program. Please excuse any errors which may have been overlooked during my review of this note. Sometimes these errors may affect the content or meaning of a given sentence.
== END 2021-06-18 14:26 | disposition home or self-care (01) ==
LOC: HO.US 14:25
PROVIDERS: PCP Nurse Practitioner Family; Visit Provider Advanced Practice Midwife
DX: O99.323 Drug use complicating pregnancy, third trimester (principal); F11.20 Opioid dependence, uncomplicated; Z3A.33 33 weeks gestation of pregnancy
CPT/HCPCS: 76816

== ENCOUNTER → 2021-07-01 11:05 | Outpatient (BNVA) | payer OTHER, SELFPAY | PROVIDERS: PCP Nurse Practitioner Family; Visit Provider Obstetrics & Gynecology | DX: O99.323 Drug use complicating pregnancy, third trimester (principal); F12.90 Cannabis use, unspecified, uncomplicated; F11.20 Opioid dependence, uncomplicated; O99.513 Diseases of the respiratory system complicating pregnancy, third trimester; J45.909 Unspecified asthma, uncomplicated; Z3A.35 35 weeks gestation of pregnancy | CPT/HCPCS: 99212 ==

== ENCOUNTER 2021-07-09 14:23 | Outpatient (REF) | payer OTHER, SELFPAY ==
--- NOTE | ~2021-07-09 | US_ITS ---
EXAMINATION: OBSTETRICAL ULTRASOUND, Follow up HISTORY: 30-year-old at the 36.3 weeks of gestation Size date discrepancy Drug use in COMPARISON: 06/18/2021 TECHNIQUE: Real time transabdominal imaging with color and M-mode Doppler. PRESENTATION: Vertex PLACENTA LOCATION: Posterior without previa AMNIOTIC FLUID: DAQUAN 16.8 cm MEASUREMENTS: 1. Biparietal Diameter: 8.4 cm; 34.0 wks 2. Head Circumference: 30.7 cm; 34.2 wks 3. Abdominal Circumference: 32.1 cm; 36.1 wks 4. Femur Length: 6.6 cm; 34.2 wks 5. Heart Rate: 133 beats per minute WEIGHT: EFW: 2602 grams (5 lbs 12 oz) -- 21 %. BIOPHYSICAL PROFILE: Motion: 2 Tone: 2 Breathin Amniotic Fluid: 2 Total score: 8/8 UA Doppler: S/D3.1 GESTATIONAL AGE: 1. Established GA: 36.3 wks 2. GA from AUA: 34.5 wks ESTIMATED DATE OF DELIVERY: 1. Established LIS: 08/03/2021 2. LIS from AUA: 08/15/2021 US/US OB follow up IMPRESSION: 1. A single active fetus is in vertex presentation 2. Size equals dates, EFW corresponds to 21st percentile. However compared to the exam on 06/18/2021, there has been less than expected interval growth. 3. Reassuring biophysical profile 4. Normal SD and the umbilical artery. I reviewed the limitations of ultrasound and estimating weights. Compared to previous exam, there has been less than expected interval growth. However the EFW is above 10th percentile. In addition, the biophysical profile and umbilical artery Dopplers are within normal limits. I recommended the weekly biophysical profile and Doppler evaluation. A repeat growth should be performed in 2 weeks. I informed the patient that the induction of labor between 38-39 weeks may be indicated if the growth continues to lag. Thank you very much for this referral. Total time 30 minutes. The time spent was devoted to counseling the patient about the disease and diagnosis, coordinating care including reviewing her records, pertinent lab data and studies, as well as discussing diagnostic evaluation and workup, plan therapeutic interventions and future disposition of care. This includes any additional research needed to obtain further information in formulating the plan of care of this patient. This note was generated with a voice recognition program. Please excuse any errors which may have been overlooked during my review of this note. Sometimes these errors may affect the content or meaning of a given sentence.
== END 2021-07-09 14:24 | disposition home or self-care (01) ==
LOC: HO.US 14:23
PROVIDERS: PCP Nurse Practitioner Family; Visit Provider Advanced Practice Midwife
DX: O26.843 Uterine size-date discrepancy, third trimester (principal); O99.323 Drug use complicating pregnancy, third trimester; Z3A.36 36 weeks gestation of pregnancy
CPT/HCPCS: 76816

== ENCOUNTER 2021-07-12 08:29 | Outpatient (REF) | payer OTHER, SELFPAY ==
[2021-07-13 01:31] LABS: CT PCR NOT DETECTED (Not Detect.); NG PCR NOT DETECTED (Not Detect.)
== END 2021-07-12 08:30 | disposition home or self-care (01) ==
LOC: HO.LAB 08:29
PROVIDERS: PCP Nurse Practitioner Family; Visit Provider Advanced Practice Midwife
DX: Z34.93 Encounter for supervision of normal pregnancy, unspecified, third trimester (principal); F17.200 Nicotine dependence, unspecified, uncomplicated
CPT/HCPCS: 81003; 87081; 87147; 87491; 87591; 99212

== ENCOUNTER 2021-07-16 13:45 | Outpatient (REF) | payer OTHER, SELFPAY ==
--- NOTE | ~2021-07-16 | US_ITS ---
EXAMINATION: US OBSTETRICAL (BIOPHYSICAL PROFILE) CLINICAL INFORMATION: 30-year-old at 37.3 weeks of gestation Size date discrepancy Drug use in COMPARISON: 07/09/2021 TECHNIQUE: Biophysical profile is performed over 30 minutes with assessment of breathing, gross body movement, tone, and qualitative amniotic fluid volume. FINDINGS: POSITION: Cephalic PLACENTA: Posterior without previa AMNIOTIC FLUID INDEX: 15.2 cm CARDIAC ACTIVITY: 135 beats per minute BIOPHYSICAL PROFILE: Motion: 2 Tone: 2 Breathin Amniotic Fluid: 2 The total biophysical score is 8/8 UA Doppler: SD 3.2 US/US OB biophysical profile IMPRESSION: 1. Single intrauterine gestation in vertex position. 2. Reassuring BPP and DAQUAN 3. Normal SD on UA Doppler She continues to be stable on methadone maintenance program. She is aware of the withdrawal. She is scheduled for weekly follow-up. Agree with plan for delivery at approximately 39-40 weeks. Thank you for allowing me to participate in her care. Total time 20 minutes. The time spent was devoted to counseling the patient about the disease and diagnosis, coordinating care including reviewing her records, pertinent lab data and studies, as well as discussing diagnostic evaluation and workup, plan therapeutic interventions and future disposition of care. This includes any additional research needed to obtain further information in formulating the plan of care of this patient. This note was generated with a voice recognition program. Please excuse any errors which may have been overlooked during my review of this note. Sometimes these errors may affect the content or meaning of a given sentence.
--- NOTE | ~2021-07-16 | US_ITS ---
EXAMINATION: US OBSTETRICAL (BIOPHYSICAL PROFILE) CLINICAL INFORMATION: 30-year-old at 37.3 weeks of gestation Size date discrepancy Drug use in COMPARISON: 07/09/2021 TECHNIQUE: Biophysical profile is performed over 30 minutes with assessment of breathing, gross body movement, tone, and qualitative amniotic fluid volume. FINDINGS: POSITION: Cephalic PLACENTA: Posterior without previa AMNIOTIC FLUID INDEX: 15.2 cm CARDIAC ACTIVITY: 135 beats per minute BIOPHYSICAL PROFILE: Motion: 2 Tone: 2 Breathin Amniotic Fluid: 2 The total biophysical score is 8/8 UA Doppler: SD 3.2 US/US OB velocimetry umbilical ar IMPRESSION: 1. Single intrauterine gestation in vertex position. 2. Reassuring BPP and DAQUAN 3. Normal SD on UA Doppler She continues to be stable on methadone maintenance program. She is aware of the withdrawal. She is scheduled for weekly follow-up. Agree with plan for delivery at approximately 39-40 weeks. Thank you for allowing me to participate in her care. Total time 20 minutes. The time spent was devoted to counseling the patient about the disease and diagnosis, coordinating care including reviewing her records, pertinent lab data and studies, as well as discussing diagnostic evaluation and workup, plan therapeutic interventions and future disposition of care. This includes any additional research needed to obtain further information in formulating the plan of care of this patient. This note was generated with a voice recognition program. Please excuse any errors which may have been overlooked during my review of this note. Sometimes these errors may affect the content or meaning of a given sentence.
[2021-07-16 17:30] LABS: Amphetamine Screen Urine Not Detected (Not Detect); Barbiturates, Urine Not Detected (Not Detect); Benzodiazepines Screen Urine Not Detected (Not Detect); Cannabinoid Screen Urine Not Detected (Not Detect); Cocaine Screen Urine Not Detected (Not Detect); Fentanyl, urine Not Detected (Not Detect); Opiate Screen Urine Not Detected (Not Detect); Phencyclidine Screen Urine Not Detected (Not Detect)
== END 2021-07-16 13:46 | disposition home or self-care (01) ==
LOC: HO.LAB 13:45
PROVIDERS: Visit Provider Obstetrics & Gynecology
DX: O26.843 Uterine size-date discrepancy, third trimester (principal); O99.323 Drug use complicating pregnancy, third trimester; Z3A.37 37 weeks gestation of pregnancy
CPT/HCPCS: 76819; 76820; 80307

== ENCOUNTER 2021-07-16 13:59 | Outpatient (REF) | payer OTHER, SELFPAY | END 2021-07-16 14:00 | disposition home or self-care (01) | LOC: HO.US 13:59 | PROVIDERS: PCP Nurse Practitioner Family; Visit Provider Advanced Practice Midwife | DX: Z13.89 Encounter for screening for other disorder (principal) ==

== ENCOUNTER → 2021-07-20 11:06 | Outpatient (BNVA) | payer OTHER, SELFPAY | PROVIDERS: PCP Nurse Practitioner Family; Visit Provider Advanced Practice Midwife | DX: O98.413 Viral hepatitis complicating pregnancy, third trimester (principal); B19.10 Unspecified viral hepatitis B without hepatic coma; O09.293 Supervision of pregnancy with other poor reproductive or obstetric history, third trimester; O99.513 Diseases of the respiratory system complicating pregnancy, third trimester; J45.909 Unspecified asthma, uncomplicated; O36.8330 Maternal care for abnormalities of the fetal heart rate or rhythm, third trimester, not applicable or unspecified; O99.213 Obesity complicating pregnancy, third trimester; O36.5930 Maternal care for other known or suspected poor fetal growth, third trimester, not applicable or unspecified; O99.323 Drug use complicating pregnancy, third trimester; O99.333 Smoking (tobacco) complicating pregnancy, third trimester; Z3A.38 38 weeks gestation of pregnancy; Z79.891 Long term (current) use of opiate analgesic; Z79.899 Other long term (current) drug therapy | CPT/HCPCS: 59025; 81003; 99212 ==

== ENCOUNTER 2021-07-23 14:12 | Outpatient (REF) | payer OTHER, SELFPAY ==
--- NOTE | ~2021-07-23 | US_ITS ---
EXAMINATION: OBSTETRICAL ULTRASOUND, Follow up HISTORY: 30-year-old at that 38.3 weeks of gestation Size less than dates Drug use in COMPARISON: 07/16/2021 TECHNIQUE: Real time transabdominal imaging with color and M-mode Doppler. PRESENTATION: Vertex PLACENTA LOCATION: Posterior without previa AMNIOTIC FLUID: DAQUAN 14.0 MEASUREMENTS: 1. Biparietal Diameter: 8.9 cm; 36.0 wks 2. Head Circumference: 32.1 cm; 36.2 wks 3. Abdominal Circumference: 32.5 cm; 36.3 wks 4. Femur Length: 6.8 cm; 35.1 wks 5. Heart Rate: 135 beats per minute WEIGHT: EFW: 2821 grams (6 lbs 4 oz) -- 12 %. BIOPHYSICAL PROFILE: Motion: 2 Tone: 2 Breathin Amniotic Fluid: 2 Total score: 8/8 UA Doppler: S/D2.6 GESTATIONAL AGE: 1. Established GA: 38.3 wks 2. GA from AUA: 36.0 wks ESTIMATED DATE OF DELIVERY: 1. Established LIS: 08/03/2021 2. LIS from AUA: 08/20/2021 US/US OB velocimetry umbilical ar IMPRESSION: 1. A single active fetus is in vertex presentation 2. Size equals dates, EFW corresponds to 12th percentile. Compared to prior exam, there has been less than expected interval growth 3. Reassuring biophysical profile with fat normal DAQUAN. Continue weekly monitoring. Agree with plan for delivery between 39-40 weeks. Thank you very much for this referral. This note was generated with a voice recognition program. Please excuse any errors which may have been overlooked during my review of this note. Sometimes these errors may affect the content or meaning of a given sentence.
--- NOTE | ~2021-07-23 | US_ITS ---
EXAMINATION: OBSTETRICAL ULTRASOUND, Follow up HISTORY: 30-year-old at that 38.3 weeks of gestation Size less than dates Drug use in COMPARISON: 07/16/2021 TECHNIQUE: Real time transabdominal imaging with color and M-mode Doppler. PRESENTATION: Vertex PLACENTA LOCATION: Posterior without previa AMNIOTIC FLUID: DAQUAN 14.0 MEASUREMENTS: 1. Biparietal Diameter: 8.9 cm; 36.0 wks 2. Head Circumference: 32.1 cm; 36.2 wks 3. Abdominal Circumference: 32.5 cm; 36.3 wks 4. Femur Length: 6.8 cm; 35.1 wks 5. Heart Rate: 135 beats per minute WEIGHT: EFW: 2821 grams (6 lbs 4 oz) -- 12 %. BIOPHYSICAL PROFILE: Motion: 2 Tone: 2 Breathin Amniotic Fluid: 2 Total score: 8/8 UA Doppler: S/D2.6 GESTATIONAL AGE: 1. Established GA: 38.3 wks 2. GA from AUA: 36.0 wks ESTIMATED DATE OF DELIVERY: 1. Established LIS: 08/03/2021 2. LIS from AUA: 08/20/2021 US/US OB follow up IMPRESSION: 1. A single active fetus is in vertex presentation 2. Size equals dates, EFW corresponds to 12th percentile. Compared to prior exam, there has been less than expected interval growth 3. Reassuring biophysical profile with fat normal DAQUAN. Continue weekly monitoring. Agree with plan for delivery between 39-40 weeks. Thank you very much for this referral. This note was generated with a voice recognition program. Please excuse any errors which may have been overlooked during my review of this note. Sometimes these errors may affect the content or meaning of a given sentence.
== END 2021-07-23 14:13 | disposition home or self-care (01) ==
LOC: HO.US 14:12
PROVIDERS: PCP Nurse Practitioner Family; Visit Provider Advanced Practice Midwife
DX: O36.5930 Maternal care for other known or suspected poor fetal growth, third trimester, not applicable or unspecified (principal); Z3A.38 38 weeks gestation of pregnancy
CPT/HCPCS: 76816; 76820

== ENCOUNTER 2021-07-27 12:07 | Outpatient (REF) | payer OTHER, SELFPAY ==
--- NOTE | ~2021-07-27 | US_ITS ---
EXAMINATION: US OBSTETRICAL (BIOPHYSICAL PROFILE) CLINICAL INFORMATION: IUGR. COMPARISON: Ultrasound OB 07/23/2021 TECHNIQUE: Ultrasound of the pelvis is performed. Biophysical profile is performed over 30 minutes with assessment of breathing, gross body movement, tone, and qualitative amniotic fluid volume. Each matrix is scored 0 or 2, depending if the metric is present. Maximum total score possible is 8. Examination is not intended to assess for anomalies. FINDINGS: POSITION: Cephalic PLACENTA: Posterior AMNIOTIC FLUID INDEX: 15.01 cm CARDIAC ACTIVITY: 126 beats per minute BIOPHYSICAL PROFILE: Motion: 2 Tone: 2 Breathin Amniotic Fluid: 2 Total score: 8/8 Umbilical artery Doppler: SD ratio measures 2.3-2.4 US/US OB biophysical profile IMPRESSION: 1. Single intrauterine gestation in cephalic position with posterior placenta. 2. Total biophysical score is 8/8 (scale 0-8). 3. Amniotic fluid index 15.01 cm. 4. cardiac activity 126 beats per minute. Stable findings compared to last ultrasound 07/20/2021.
--- NOTE | ~2021-07-27 | US_ITS ---
EXAMINATION: US OBSTETRICAL (BIOPHYSICAL PROFILE) CLINICAL INFORMATION: IUGR. COMPARISON: Ultrasound OB 07/23/2021 TECHNIQUE: Ultrasound of the pelvis is performed. Biophysical profile is performed over 30 minutes with assessment of breathing, gross body movement, tone, and qualitative amniotic fluid volume. Each matrix is scored 0 or 2, depending if the metric is present. Maximum total score possible is 8. Examination is not intended to assess for anomalies. FINDINGS: POSITION: Cephalic PLACENTA: Posterior AMNIOTIC FLUID INDEX: 15.01 cm CARDIAC ACTIVITY: 126 beats per minute BIOPHYSICAL PROFILE: Motion: 2 Tone: 2 Breathin Amniotic Fluid: 2 Total score: 8/8 Umbilical artery Doppler: SD ratio measures 2.3-2.4 US/US OB velocimetry umbilical ar IMPRESSION: 1. Single intrauterine gestation in cephalic position with posterior placenta. 2. Total biophysical score is 8/8 (scale 0-8). 3. Amniotic fluid index 15.01 cm. 4. cardiac activity 126 beats per minute. Stable findings compared to last ultrasound 07/20/2021.
== END 2021-07-27 12:08 | disposition home or self-care (01) ==
LOC: HO.US 12:07
PROVIDERS: PCP Nurse Practitioner Family; Visit Provider Obstetrics & Gynecology
DX: O36.5930 Maternal care for other known or suspected poor fetal growth, third trimester, not applicable or unspecified (principal); O99.343 Other mental disorders complicating pregnancy, third trimester; O99.323 Drug use complicating pregnancy, third trimester; F41.9 Anxiety disorder, unspecified; F11.20 Opioid dependence, uncomplicated; Z3A.39 39 weeks gestation of pregnancy
CPT/HCPCS: 59025; 76819; 76820; 99212

== ENCOUNTER 2022-03-19 21:57 | Emergency (ER) | payer OTHER, SELFPAY ==
--- NOTE | 2022-03-19 22:11 | ED.OVERDOSE ---
HPI - Overdose General Chief Complaint: Overdose Stated Complaint: OD Time Seen by Provider: 03/19/22 22:11 Source: patient Mode of arrival: EMS Limitations: no limitations History of Present Illness HPI Narrative: accidental heroin overdose - doing well tapering down on methadone, used tonight - required 8mg [place] narcan by PD and bystander. Awake with EMS MD complaint: accidental overdose Onset (ago): minute(s) (just prior to arrival ) Context: Accidental Overdose: wanted to get high Treatments Prior to Arrival: narcan (8mg IN) Related Data Home Medications Medication Instructions Recorded Confirmed methadone 40 mg soluble tablet 35 mg PO DAILY 04/09/21 07/09/21 Previous Rx's Medication Instructions Recorded albuterol sulfate 90 mcg/actuation 2 puff inhalation Q6H PRN 07/09/20 aerosol inhaler (ProAir HFA) shortness of breath or wheezing #6.7 grams vit 168-iron 27 mg-folic 1 cap PO .qd #90 caps 01/15/21 acid 800 mcg-omega3 235 mg capsule peak flow meter (Peak Air Peak #1 ea 06/01/21 Flow Meter) Allergies Allergy/AdvReac Type Severity Reaction Status Date / Time No Known Allergies Allergy Verified 07/20/21 11:16 Review of Systems Review of Systems: Constitutional : No Fever, No Chills ENT/Mouth : No sore throat, No Rhinorrhea Eyes: No Eye Pain, No Swelling, No Redness Cardiovascular : No Chest Pain, No SOB Respiratory : No Cough, No Sputum, No Wheezing Gastrointestinal : No Nausea, No Vomiting, No Diarrhea Genitourinary : No Dysuria, No Urinary Frequency, No Hematuria, Musculoskeletal : No joint pain, No Myalgias, No Joint Swelling Skin : No Skin Lesions, No rash Neuro : No Weakness, No Numbness, No Dizziness, No Headache Psych : No Anxiety/Panic, No Depression, no SI/HI All other systems reviewed and are negative [facility] Past Medical History Medical History Anxiety and depression Encounter for control Hx of type B viral hepatitis Screening for cervical cancer Surgical History No pertinent past surgical history Family History Family History Father No problems noted. Mother Scoliosis Maternal Grandmother Breast cancer Social History Social History Household Members: Family Alcohol intake: former Patient Tobacco Use Status: Current someday Tobacco user Substance Use Type: Former Substance User and Marijuana Advance Directives: No Advance Directives Information Provided: Yes Gender identity: Female Physical Exam Vital Signs: Vital Signs: Last Vital Signs Temp 98 F 03/19/22 22:17 Pulse 130 H 03/19/22 22:17 Resp 19 03/19/22 22:17 BP 136/86 03/19/22 22:17 Pulse Ox 99 03/19/22 22:17 O2 Del Method 03/19/22 22:17 BMI result Body Mass Index 30.2 Appearance: Alert. Oriented X3. No acute distress. Eyes: Pupils equal, round and reactive to light. ENT: Pharynx normal. Neck: Normal inspection. Neck supple. CVS: Normal heart rate and rhythm. Pulses normal. Respiratory: No respiratory distress. Breath sounds normal. Abdomen: Soft and non-tender. Skin: Skin warm and dry. Normal skin color. Normal skin turgor. Extremities: No lower extremity edema. No calf ttp Neuro: Oriented X 3. No motor deficit. No sensory deficit. Course Course Course Narrative: awake alert 1 hour obs no need for repeat narcan - wants to leave has ride home MDM - Overdose MDM Narrative Medical decision making narrative: 31 yo female with hx of recovery from opiates - here with accidental OD - at this time agrees to 1 hour observation in ED has no SI, carries narcan. refuses SUDE evaluation.Does not want detox Discharge Plan Discharge Clinical Impression: Accidental heroin overdose Patient Disposition: Home, Self-Care Instructions: Adult Overdose (ED) Additional Instructions: return to ED for any worsening symptoms or concerns carry narcan with you at all times please be careful most of the heroin is fentanyl at this time Prescriptions: No Action albuterol sulfate [ProAir HFA] 90 mcg/actuation HFA aerosol inhaler 2 puff inhalation Q6H PRN (Reason: shortness of breath or wheezing) Qty: 6.7 0RF methadone 40 mg tablet,soluble 35 mg PO DAILY [id number] 27 mg iron- 800 mcg-235 mg capsule 1 cap PO .qd Qty: 90 2RF (DME) Peak Air Peak Flow Meter Device See Rx Instructions .Route Qty: 1 0RF Rx Instructions: As directed
[2022-03-19 22:15] VITALS: BP 132/84; PULSE 130; O2SAT 98
[2022-03-19 22:17] VITALS: BP 136/86; PULSE 130; RESP 19; TEMP 36.6; O2SAT 99; BMI 30.2
== END 2022-03-19 23:30 | disposition home or self-care (01) ==
PROVIDERS: Emergency Provider Emergency Medicine
DX: T40.1X1A Poisoning by heroin, accidental (unintentional), initial encounter (principal); Y92.9 Unspecified place or not applicable; F17.200 Nicotine dependence, unspecified, uncomplicated
CPT/HCPCS: 99282

== ENCOUNTER 2022-07-17 15:05 | Emergency (ER) | payer OTHER, SELFPAY ==
[2022-07-17 15:35] VITALS: BP 101/61; BP 126/64; PULSE 77; PULSE 81; RESP 18; TEMP 36.8; O2SAT 94; O2SAT 98; BMI 31.7
--- NOTE | 2022-07-17 15:46 | ED_ITS ---
HPI - Alcohol General Chief Complaint: ETOH/Substance Use <Shelby Burr MIGUEL Carr - Last Filed: 07/17/22 17:34> Stated Complaint: ETOH <Shelby Burr MIGUEL Carr - Last Filed: 07/17/22 17:34> Time Seen by Provider: 07/17/22 15:23 <Shelby Aminahgopi Carr CNP - Last Filed: 07/17/22 17:34> Source: patient <Shelby Burr MIGUEL Carr - Last Filed: 07/17/22 17:34> Mode of arrival: EMS <Shelby Burr MIGUEL Carr - Last Filed: 07/17/22 17:34> Limitations: no limitations <Shelby Burr MIGUEL Carr - Last Filed: 07/17/22 17:34> History of Present Illness HPI narrative: 31-year-old female presenting via EMS from [facility], was there for detox, arrived 4 hours after scheduled intake, transported to hospital given concerns for acute intoxication appearing under the influence of recreational drugs. At the time of examination, patient unresponsive. <Shelby Aminah MIGUEL Carr - Last Filed: 07/17/22 17:34> Related Data Home Medications: Home Medications Medication Instructions Recorded Confirmed methadone 40 mg soluble tablet 35 mg PO DAILY 04/09/21 07/09/21 Previous Rx's Medication Instructions Recorded albuterol sulfate 90 mcg/actuation 2 puff inhalation Q6H PRN 07/09/20 aerosol inhaler (ProAir HFA) shortness of breath or wheezing #6.7 grams vit 168-iron 27 mg-folic 1 cap PO .qd #90 caps 01/15/21 acid 800 mcg-omega3 235 mg capsule peak flow meter (Peak Air Peak #1 ea 06/01/21 Flow Meter) naloxone 4 mg/actuation nasal 4 mg intranasal Q2M PRN opioid 07/17/22 spray (Narcan) overdose #2 ea <Shelby Aminahgopi Carr CNP - Last Filed: 07/17/22 17:34> Allergies/Adverse Reactions: Allergies Allergy/AdvReac Type Severity Reaction Status Date / Time No Known Allergies Allergy Verified 07/20/21 11:16 <Shelby Carr CNP - Last Filed: 07/17/22 17:34> Review of Systems Review of Systems: Yes Unobtainable due to mental status <Shelby Carr CNP - Last Filed: 07/17/22 17:34> [facility] Past Medical History Attestation statement: The following information was validated with the patient. <Shelby Carr CNP - Last Filed: 07/17/22 17:34> Source: old records reviewed <Shelby Carr CNP - Last Filed: 07/17/22 17:34> Medical History: Medical History Anxiety and depression Encounter for control Hx of type B viral hepatitis Screening for cervical cancer <Shelby Carr CNP - Last Filed: 07/17/22 17:34> Surgical History: Surgical History No pertinent past surgical history <Shelby Carr CNP - Last Filed: 07/17/22 17:34> Family History Family History: Family History Father No problems noted. Mother Scoliosis Maternal Grandmother Breast cancer <Shelby Carr CNP - Last Filed: 07/17/22 17:34> Social History Social History: Social History Household Members: Family Alcohol intake: former Patient Tobacco Use Status: Current someday Tobacco user Substance Use Type: Former Substance User and Marijuana Advance Directives: No Advance Directives Information Provided: No Gender identity: Female <Shelby Carr CNP - Last Filed: 07/17/22 17:34> Physical Exam ED Vital Signs: Vital Signs - 24 hr 07/17/22 15:35 Temperature 98.2 F Pulse Rate 81 Respiratory Rate 18 Blood Pressure 101/61 Pulse Oximetry 94 Oxygen Delivery Method Room Air BMI result Body Mass Index 31.7 <Shelby Carr CNP - Last Filed: 07/17/22 17:34> Vital Signs - 24 hr 07/17/22 15:35 Temperature 98.2 F Pulse Rate 81 Respiratory Rate 18 Blood Pressure 101/61 Pulse Oximetry 94 Oxygen Delivery Method Room Air BMI result Body Mass Index 31.7 <KALI Lin - Last Filed: 07/17/22 20:36> Appearance: Lethargic?Oriented to person, disoriented to place time and event Eyes: Pupils pinpoint, equal ENT: Pharynx normal.?? Neck: Normal inspection.? Neck supple.?? CVS: Heart sounds normal. Normal heart rate and rhythm.? Pulses normal.?? Respiratory: No respiratory distress.? Lung sounds clear to auscultation bilaterally?? Abdomen: Soft and non-tender. Skin: Skin warm and dry.? Normal skin color.? Extremities: No lower extremity edema.? Neuro: Moves all extremities spontaneously. Sensation intact bilaterally. CN II- XII intact. No focal neuro deficits. <Shelby Carr CNP - Last Filed: 07/17/22 17:34> Course Course Course Narrative: Patient is a 31-year-old female presents to the emergency department via EMS, At the time of my initial examination patient not responding to verbal or tactile stimuli, respirations 10, pulse is present, endorsed using recreational drugs earlier today, concern for overdose based on presentation, intranasal Narcan was administered. Patient arousing to verbal stimuli afterwards. She presented [facility] today apparently 4 hours after her scheduled intake appointment. She was unable to complete the intake, a shoe was appearing acutely intoxicated, and under the influence of drugs, she was therefore transported to the hospital via EMS. It is unclear exactly how much patient is drinking, she cannot elaborate on this, she states that she snorted 6 bags of heroin earlier today at approximately 09:00, although she reported to detox staff that it was fentanyl she was using. Will obtain basic labs, drug of abuse screen, ethanol level, patient to remain on security monitor, and continue to observe for signs of overdose. She will likely need to be referred to care team for evaluation and assistance with detox should she still wished to pursue. Denies any suicidal or homicidal ideations. At this time she has no physical complaints. <Shelby Carr CNP - Last Filed: 07/17/22 17:34> Reevaluation(s) Reevaluation #1: Patient has been resting, easily arousable to verbal stimuli. No apparent distress. No hypoxia on room air. Will continue to monitor, will require serum labs and drug abuse screen. Once more awake will evaluate whether patient still requests assistance with detox. Patient signed out to [facility]. <Shelby Carr CNP - Last Filed: 07/17/22 17:34> Time: 17:33 <Shelby Carr CNP - Last Filed: 07/17/22 17:34> Reevaluation #2: Patient refusing laboratory studies. Refusing further intervention and treatment. Patient awake, alert, ambulating with steady gait able to make her own decisions requesting to go home. Vital signs are stable. Does not want to go to detox. Refusing substance use disorder evaluation. Denies SI and HI. Neuro nonfocal. Regular rate and rhythm. Lungs clear. Abdomen soft nontender nondistended. At this time patient will be discharged home with safe ride. <KALI Lin - Last Filed: 07/17/22 20:36> Time: 20:32 <KALI Lin - Last Filed: 07/17/22 20:36> MDM - Alcohol Medical Records Attestation: I reviewed the patient's medical records. <KALI Lin - Last Filed: 07/17/22 20:36> Lab Data Attestation: I reviewed the patient's lab results. <KALI Lin - Last Filed: 07/17/22 20:36> Labs: Lab Results 07/17/22 07/17/22 07/17/22 Range/Units 17:55 17:55 17:55 Urine Color Yellow Urine Appearance Clear Urine pH 6.5 (5.0-9.0) Ur Specific [place] <= 1.005 (1.005-1.025) Urine Protein Negative (Neg-Trace) mg/dL Urine Glucose (UA) Negative (Negative) mg/dL Urine Ketones Negative (Negative) mg/dL Urine Blood Negative (Negative) Urine Nitrite Negative (Negative) Ur Leukocyte Esterase Negative (Negative) Urine Test NEGATIVE (NEGATIVE) Urine Opiates Screen POSITIVE H (Not Detect) Urine Fentanyl Screen POSITIVE H (Not Detect) Ur Barbiturates Screen Not Detected (Not Detect) Ur Phencyclidine Scrn Not Detected (Not Detect) Ur Amphetamines Screen Not Detected (Not Detect) U Benzodiazepines Scrn Not Detected (Not Detect) Urine Cocaine Screen Not Detected (Not Detect) U Marijuana (THC) Screen Not Detected (Not Detect) <Shelby Carr CNP - Last Filed: 07/17/22 17:34> Lab Results 07/17/22 07/17/22 07/17/22 Range/Units 17:55 17:55 17:55 Urine Color Yellow Urine Appearance Clear Urine pH 6.5 (5.0-9.0) Ur Specific [place] <= 1.005 (1.005-1.025) Urine Protein Negative (Neg-Trace) mg/dL Urine Glucose (UA) Negative (Negative) mg/dL Urine Ketones Negative (Negative) mg/dL Urine Blood Negative (Negative) Urine Nitrite Negative (Negative) Ur Leukocyte Esterase Negative (Negative) Urine Test NEGATIVE (NEGATIVE) Urine Opiates Screen POSITIVE H (Not Detect) Urine Fentanyl Screen POSITIVE H (Not Detect) Ur Barbiturates Screen Not Detected (Not Detect) Ur Phencyclidine Scrn Not Detected (Not Detect) Ur Amphetamines Screen Not Detected (Not Detect) U Benzodiazepines Scrn Not Detected (Not Detect) Urine Cocaine Screen Not Detected (Not Detect) U Marijuana (THC) Screen Not Detected (Not Detect) <KALI Lin - Last Filed: 07/17/22 20:36> Discharge Plan Discharge Clinical Impression: Polysubstance use disorder, Overdose, Left against medical advice <Shelby Carr CNP - Last Filed: 07/17/22 17:34> Patient Disposition: Still a Patient <Shelby Carr CNP - Last Filed: 07/17/22 17:34> Instructions: Adult Overdose (ED) <Shelby Carr CNP - Last Filed: 07/17/22 17:34> Additional Instructions: Take your medications as prescribed. If you were prescribed antibiotics today, it is important that you take your medication to their entirety, do not skip any doses, do not finish them early. Follow-up with your primary care provider this week. Return to the emergency department with new or worsening symptoms. Such as fevers, chills, chest pain, shortness of breath, nausea, vomiting, dizziness, headache, vision changes, lethargy In case of emergency call 911 You will be leaving against medical advice because he refused further intervention, treatment, laboratory studies, observation. <Shelby Carr CNP - Last Filed: 07/17/22 17:34> Prescriptions: New naloxone [Narcan] 4 mg/actuation spray,non-aerosol 4 mg intranasal Q2M PRN (Reason: opioid overdose) Qty: 2 0RF Rx Instructions: spray 1 dose into ONE nostril; alternate nostrils w each dose until help arrives No Action albuterol sulfate [ProAir HFA] 90 mcg/actuation HFA aerosol inhaler 2 puff inhalation Q6H PRN (Reason: shortness of breath or wheezing) Qty: 6.7 0RF methadone 40 mg tablet,soluble 35 mg PO DAILY [id number] 27 mg iron- 800 mcg-235 mg capsule 1 cap PO .qd Qty: 90 2RF (DME) Peak Air Peak Flow Meter Device See Rx Instructions .Route Qty: 1 0RF Rx Instructions: As directed <Shelby Carr CNP - Last Filed: 07/17/22 17:34> Referrals: [facility] [Provider Group] - 1 day Vida Yeh MD [Primary Care Provider] - 2 days <Shelby Carr CNP - Last Filed: 07/17/22 17:34> Stand Alone Forms: Against Medical Advice <Shelby Carr CNP - Last Filed: 07/17/22 17:34>
--- NOTE | 2022-07-17 16:26 | PC.NURSE ---
PT INCONTINENT OF LARGE AMOUNT OF BOWEL AND BLADDER CONTENTS. NOTABLE GOOSE FLESH AND NAUSEA. STILL AGITATED AT TIMES
[2022-07-17] MEDS: Naloxone HCl Nasal 4 MG SPRAY NOSTRILALT (17:30)
[2022-07-17 18:03] LABS: Appearance Urine Clear; Color Urine Yellow; Glucose Urine UA Negative (Negative); Leukocyte Esterase Urine Negative (Negative); Nitrite Urine Negative (Negative); PH 6.5 (5.0-9.0); Specific Gravity - Urine <= 1.005 (1.005-1.025); Urine Blood Negative (Negative); Urine Ketones Negative (Negative); Urine Protein Negative (Neg-Trace)
[2022-07-17 18:05] LABS: UPreg QC Valid YES; Urine Pregnancy NEGATIVE (NEGATIVE)
[2022-07-17 18:15] LABS: Amphetamine Screen Urine Not Detected (Not Detect); Barbiturates, Urine Not Detected (Not Detect); Benzodiazepines Screen Urine Not Detected (Not Detect); Cannabinoid Screen Urine Not Detected (Not Detect); Cocaine Screen Urine Not Detected (Not Detect); Fentanyl, urine POSITIVE (Not Detect); Opiate Screen Urine POSITIVE (Not Detect); Phencyclidine Screen Urine Not Detected (Not Detect)
--- NOTE | 2022-07-17 20:11 | PC.NURSE ---
Pt. currently sleeping in bed. No distress noted.
--- NOTE | 2022-07-17 20:25 | PC.NURSE ---
Patient woke up now wants to go home. Will speak to provider.
--- NOTE | 2022-07-17 20:29 | PC.NURSE ---
patient refused tech to draw labs
== END 2022-07-17 21:09 | disposition home or self-care (01) ==
PROVIDERS: Nurse Practitioner Family; Emergency Provider Emergency Medicine; PCP Internal Medicine
DX: T40.1X1A Poisoning by heroin, accidental (unintentional), initial encounter (principal); Y92.9 Unspecified place or not applicable; Z79.899 Other long term (current) drug therapy; Z71.51 Drug abuse counseling and surveillance of drug abuser
CPT/HCPCS: 80307; 81003; 81025; 99284

== ENCOUNTER 2022-09-06 15:29 | Outpatient (REF) | payer OTHER, SELFPAY | END 2022-09-06 15:30 | disposition home or self-care (01) | LOC: HO.LNP 15:29 | PROVIDERS: PCP Internal Medicine; Visit Provider Advanced Practice Midwife | DX: N92.6 Irregular menstruation, unspecified (principal) | CPT/HCPCS: 99212 ==

== ENCOUNTER 2022-09-06 16:17 | Outpatient (REF) | payer OTHER, SELFPAY ==
[2022-09-06 18:33] LABS: HCG Quantitative 58977 mIU/mL
[2022-09-07 06:24] LABS: CT PCR NOT DETECTED (Not Detect.); NG PCR NOT DETECTED (Not Detect.)
[2022-09-07 13:06] LABS: BV Int Neg Control Negative (Negative); BV Int Pos Control Positive (Positive)
== END 2022-09-06 16:18 | disposition home or self-care (01) ==
LOC: HO.LAB 16:17
PROVIDERS: Visit Provider Advanced Practice Midwife
DX: Z11.3 Encounter for screening for infections with a predominantly sexual mode of transmission (principal); O20.0 Threatened abortion; Z20.2 Contact with and (suspected) exposure to infections with a predominantly sexual mode of transmission
CPT/HCPCS: 84702; 87086; 87088; 87186; 87480; 87491; 87510; 87591; 87660

== ENCOUNTER 2022-09-16 13:04 | Outpatient (REF) | payer OTHER, SELFPAY ==
--- NOTE | ~2022-09-16 | US_ITS ---
EXAMINATION: US OBSTETRICAL ULTRASOUND CLINICAL INFORMATION: Irregular menstruation. COMPARISON: None. LMP: 07/19/2022. Gestational age by maternal dates is 8 weeks, 3 days. Estimated date of delivery by maternal dates is 04/25/2023. TECHNIQUE: Multiple 2-D grayscale and Doppler ultrasound images of the pelvis were obtained. FINDINGS: There is a single intrauterine gestational sac with visible yolk sac, embryo/fetus, and cardiac activity. There is no significant subchorionic hemorrhage or hematoma. HR: 153 beats per minute. CRL (crown rump length): 1.4 cm (7 weeks 5 days +/- 4 days). LIS (estimated date of delivery): 04/30/2023 +/- 4 days. MATERNAL ADNEXA: The right maternal ovary measures 2.3 x 1.6 x 1.4 cm. The left maternal ovary measures 2.3 x 1.6 x 2.0 cm. There is no significant maternal adnexal mass. No maternal pelvic ascites. US/US OB <= 14 weeks fetus IMPRESSION: 1. Single intrauterine gestation with ultrasound gestational age of 7 weeks, 5 days +/- 4 days. Short-term obstetric and imaging follow-up recommended as clinically indicated.
== END 2022-09-16 13:05 | disposition home or self-care (01) ==
LOC: HO.US 13:04
PROVIDERS: PCP Internal Medicine; Visit Provider Advanced Practice Midwife
DX: O26.841 Uterine size-date discrepancy, first trimester (principal)
CPT/HCPCS: 76801

== ENCOUNTER 2023-02-11 12:27 | Emergency (ER) | payer OTHER, SELFPAY ==
--- NOTE | ~2023-02-11 | XR_ITS ---
EXAMINATION: XR CHEST CLINICAL INFORMATION: Cough. COMPARISON: None available. TECHNIQUE: 2 views of the chest were obtained. FINDINGS: No significant abnormality is noted involving the heart, lungs, mediastinum, bony thorax or soft tissues. XR/XR chest 2V IMPRESSION: No acute cardiopulmonary process.
--- NOTE | 2023-02-11 12:37 | ED.URI ---
HPI - URI/Sore Throat General Chief Complaint: General Medical Stated Complaint: sore throat Time Seen by Provider: 02/11/23 13:10 History of Present Illness HPI Narrative: Patient complains of sore throat wheezing and chest tightness for over a week, well as a cough productive of sputum Difficulty breathing is mild she has no difficulty swallowing, she has had no fever or chills, she does have a stuffy and runny nose Related Data Home Medications Medication Instructions Recorded Confirmed methadone 40 mg soluble tablet 12 mg PO DAILY 09/06/22 Previous Rx's Medication Instructions Recorded albuterol sulfate 90 mcg/actuation 2 puff inhalation Q6H PRN 07/09/20 aerosol inhaler (ProAir HFA) shortness of breath or wheezing #6.7 grams peak flow meter (Peak Air Peak #1 ea 06/01/21 Flow Meter) naloxone 4 mg/actuation nasal 4 mg intranasal Q2M PRN opioid 07/17/22 spray (Narcan) overdose #2 ea vitamin with calcium 1 tab PO DAILY #30 tabs 09/06/22 no.72-iron 27 mg-folic acid 1 mg tablet ( Vitamins Plus Low Iron) pyridoxine (vitamin B6) 25 mg 25 mg PO TID PRN nausea and 09/06/22 tablet (Vitamin B-6) vomiting #90 tabs nitrofurantoin 100 mg PO BID 7 days #14 caps 09/08/22 monohydrate/macrocrystals 100 mg capsule (Macrobid) albuterol sulfate 90 mcg/actuation 2 puff inhalation Q4-6H PRN 02/11/23 aerosol inhaler shortness of breath or wheezing #8.5 grams amoxicillin 875 mg-potassium 1 tab PO BID 5 days #10 tabs 02/11/23 clavulanate 125 mg tablet benzonatate 200 mg capsule 200 mg PO BID PRN cough #14 caps 02/11/23 cetirizine 10 mg tablet 10 mg PO DAILY PRN allergy 02/11/23 symptoms #14 tabs oxymetazoline 0.05 % nasal spray 2 spray intranasal Q12H PRN nasal 02/11/23 congestion 3 days #22 mL prednisone 20 mg tablet 60 mg PO DAILY 5 days #15 tabs 02/11/23 Allergies Allergy/AdvReac Type Severity Reaction Status Date / Time No Known Allergies Allergy Verified 02/11/23 12:37 [facility] Past Medical History Source: nursing notes reviewed Medical History (Updated 02/11/23 @ 14:05 by AKLI Bryan) Anxiety and depression Hx of type B viral hepatitis Physical exam Screening for cervical cancer UTI in , antepartum Surgical History No pertinent past surgical history Family History Family History Father No problems noted. Mother Scoliosis Maternal Grandmother Breast cancer Social History Social History Household Members: Family Alcohol intake: former Patient Tobacco Use Status: Current someday Tobacco user Substance Use Type: Former Substance User and Marijuana Advance Directives: No Advance Directives Information Provided: No Gender identity: Female Physical Exam Vital Signs: Vital Signs: Last Vital Signs Temp 98 F 02/11/23 12:38 Pulse 75 02/11/23 13:32 Resp 16 02/11/23 13:32 BP 131/81 02/11/23 12:38 Pulse Ox 95 02/11/23 12:38 O2 Del Method Room Air 02/11/23 12:38 BMI result Body Mass Index 28.3 General appearance comfortable no distress The eyes no redness or discharge The nose is congested but there is no sinus tenderness The pharynx had some mild redness but no swelling, no exudate, uvula midline, voice is normal Neck is supple The chest had good air movement but there was bilateral wheezing Heart no murmur Abdomen soft nontender Extremities range of motion x4 Skin no rash Course Course Course Narrative: RME - 32 yo female with history of peritonsillar abscess presents to the ER for evaluation of worsening sore throat for the last 4 days. Also reports productive cough, ear pain and headache. right tonsil with exudates. uvula midline. Plan: strep & covid swab Strep and COVID swab were negative, chest x-ray no acute findings The patient was given a treatment in the ER with improved air entry, feeling improved but there was still mild residual wheezing She is advised use her albuterol inhaler as needed and that prednisone should help the wheezing by tomorrow, she does not feel short of breath now and feels fine to go home Well-appearing patient is treated with for bronchitis asthma and congestion with prescriptions and is discharged Medications Administered Discontinued Medications Generic Name Dose Route Start Last Admin Trade Name Freq PRN Reason Stop Dose Admin Albuterol/Ipratropium 3 ml 02/11/23 13:12 02/11/23 13:32 Albuterol/Iprat 2.5/0.5mg 3 Ml Ampul.Neb INHALE 02/11/23 13:13 3 ml ONCE ONE Administration Dexamethasone 10 mg 02/11/23 13:12 02/11/23 13:36 Dexamethasone 2 Mg Tablet PO 02/11/23 13:13 10 mg ONCE ONE Administration Medical Decision Making Lab Data Labs: Lab Results 02/11/23 02/11/23 Range/Units 12:58 12:58 COVID-19 ([facility]) Negative (Negative) COVID-19 Clin Com See Note S. pyogenes GrpA DEBORAH Negative (Negative) Discharge Plan Discharge Clinical Impression: Asthma, Bronchitis Patient Disposition: Home, Self-Care Additional Instructions: Your being treated for asthma with prednisone for 5 days and albuterol, the red pump as needed The are inj pump will not help acute wheezing and is to help with prevention, so to help with the wheezing use the red pump, albuterol For congestion you can use [id number] oxymetazoline, maximum 5 days as it can have a rebound effect I also wrote for cetirizine anti allergy medicine in case allergies are part of the problem I wrote a prescription for antibiotic Zithromax but it is fine to wait 1 or 2 days and see if the cough just goes away as the asthma is treated you may not need to take Return any time for difficulty breathing any worse condition or any concerns Chest x-ray did not show any pneumonia, COVID and strep tests were negative Prescriptions: New benzonatate 200 mg capsule 200 mg PO BID PRN (Reason: cough) Qty: 14 0RF amoxicillin-pot clavulanate 875-125 mg tablet 1 tab PO BID 5 Days Qty: 10 0RF oxymetazoline 0.05 % spray,non-aerosol 2 spray intranasal Q12H PRN (Reason: nasal congestion) 3 Days Qty: 22 0RF cetirizine 10 mg tablet 10 mg PO DAILY PRN (Reason: allergy symptoms) Qty: 14 0RF prednisone 20 mg tablet 60 mg PO DAILY 5 Days Qty: 15 0RF albuterol sulfate 90 mcg/actuation HFA aerosol inhaler 2 puff inhalation Q4-6H PRN (Reason: shortness of breath or wheezing) Qty: 8.5 0RF No Action nitrofurantoin monohyd/m-cryst [Macrobid] 100 mg capsule 100 mg PO BID 7 Days Qty: 14 0RF Rx Instructions: must administer with a meal/food naloxone [Narcan] 4 mg/actuation spray,non-aerosol 4 mg intranasal Q2M PRN (Reason: opioid overdose) Qty: 2 0RF Rx Instructions: spray 1 dose into ONE nostril; alternate nostrils w each dose until help arrives albuterol sulfate [ProAir HFA] 90 mcg/actuation HFA aerosol inhaler 2 puff inhalation Q6H PRN (Reason: shortness of breath or wheezing) Qty: 6.7 0RF methadone 40 mg tablet,soluble 12 mg PO DAILY (DME) Peak Air Peak Flow Meter Device See Rx Instructions .Route Qty: 1 0RF Rx Instructions: As directed Vitamin Plus Low Iron 27 mg iron- 1 mg tablet 1 tab PO DAILY Qty: 30 11RF pyridoxine (vitamin B6) [Vitamin B-6] 25 mg tablet 25 mg PO TID PRN (Reason: nausea and vomiting) Qty: 90 3RF Rx Instructions: may take every 6-8 hours for nausea
[2023-02-11 12:38] VITALS: BP 131/81; PULSE 91; RESP 19; TEMP 36.6; O2SAT 95; BMI 28.3
[2023-02-11 13:16] LABS: IDNOW Serial# 6674DD1D; Strep A Nucleic Acid Negative (Negative)
[2023-02-11 13:20] LABS: COVID-19 Test Negative (Negative); IDNOW Serial# 9DB6401D
[2023-02-11 13:32] VITALS: PULSE 75; RESP 16; O2SAT 97
[2023-02-11] MEDS: Albuterol/Iprat 2.5/0.5MG 3 ML AMPUL.NEB INHALE (13:32)
[2023-02-11] MEDS: dexAMETHasone 2 MG TABLET 10 MG PO (13:36)
== END 2023-02-11 14:31 | disposition home or self-care (01) ==
PROVIDERS: Physician Assistant; Emergency Provider Emergency Medicine; PCP Internal Medicine
DX: J45.909 Unspecified asthma, uncomplicated (principal); J40 Bronchitis, not specified as acute or chronic; Z20.822 Contact with and (suspected) exposure to COVID-19; F17.200 Nicotine dependence, unspecified, uncomplicated; F12.90 Cannabis use, unspecified, uncomplicated; Z79.899 Other long term (current) drug therapy
CPT/HCPCS: 71046; 87635; 87651; 94640; 99283; 99284; J8540

== ENCOUNTER 2023-11-29 15:47 | Outpatient (AMB) | payer SELFPAY ==
[2023-11-29 15:49] VITALS: BP 130/80; PULSE 109; TEMP 36.8; O2SAT 96; BMI 29.3
--- NOTE | 2023-11-29 15:49 | AM.OFFWIN_ITS ---
Intake Vital Signs 11/29/23 15:49 Height 5 ft 1 in Weight 155 lb 2 oz BMI 29.3 BP 130/80 Blood Pressure Location Rt brachial Position Sitting Pulse 109 H Pulse Source Pulse Oximeter Temp 98.3 F Temp Source Oral Pulse Oximetry (%) 96 Oxygen Delivery Method Room Air Intake Visit Reasons: EP Bug Bite on RT hip Intake Note: Pt presents to the office today for a bug bite on her right hip. She noticed it on Monday11/25/23. Pt states it is painful. Patient Tobacco Use Status: Current someday Tobacco user Allergies No Known Allergies Allergy (Verified 11/29/23 15:52) Medication List - Last Reconciled 11/29/23 by KALI Isaac albuterol sulfate 90 mcg/actuation 2 puffs inhalation Q4-6H PRN albuterol sulfate 90 mcg/actuation (ProAir HFA) 2 puffs inhalation Q6H PRN benzonatate 200 mg PO BID PRN cephalexin 500 mg PO BID 10 days cetirizine 10 mg PO DAILY PRN fluticasone propionate 50 mcg/actuation 2 sprays intranasal DAILY PRN methadone 12 mg PO DAILY naloxone 4 mg/actuation (Narcan) 4 mg intranasal Q2M PRN oxymetazoline 0.05% 2 sprays intranasal Q12H PRN 3 days peak flow meter (Peak Air Peak Flow Meter) As directed HPI HPI Comments History of Present Illness Details 33-year-old female presents today compla ining of a lesion on the right lateral thigh. She states she thinks it was a bug bite. Has a central induration and surrounding erythema. She states it has been increasing in i ntensity the last 24 hours PFSH Medical History UTI in , antepartum Hx of type B viral hepatitis Screening for cervical cancer Anxiety and depression Physical exam Surgical History No pertinent past surgical history Family History Father No problems noted. Mother Scoliosis Maternal Grandmother Breast cancer Social History Household Members: Family Both parents involved: Yes Alcohol intake: former Patient Tobacco Use Status: Current someday Tobacco user Substance Use Type: Former Substance User and Marijuana Gender identity: Female Female Reproductive History Menstrual Age of Menarche: 13 Review of Systems Const All systems reviewed & are unremarkable except as noted in HPI and below Physical Exam Vital Signs: Last Vital Signs Temp 98.3 F 11/29/23 15:49 Pulse 109 H 11/29/23 15:49 BP 130/80 11/29/23 15:49 Pulse Ox 96 11/29/23 15:49 Oxygen Delivery Method Room Air 11/29/23 15:49 BMI result Body Mass Index 29.3 Skin Lesions: lesion noted (Cellulitic lesion right anterior thigh) Assessment & Plan Assessment & Plan (1) Abscess: Code(s): L02.91 - Cutaneous abscess, unspecified Plan: The patient will take the antibiotics return to the clinic or PCP if it does not resolve. Plan see plan Medications: New fluticasone propionate 50 mcg/actuation administer into each nostril 2 sprays intranasal DAILY PRN 16 grams 0RF allergy symptoms cephalexin 500 mg PO BID 10 days 20 caps 0RF Coding Level of Care Code Est Pt Level 3 (53137) Diagnoses Abscess L02.91
== END 2023-11-29 16:20 | disposition home or self-care (01) ==
PROVIDERS: PCP Internal Medicine; Visit Provider Physician Assistant Medical
DX: L02.91 Cutaneous abscess, unspecified (principal)
CPT/HCPCS: 99213